=== PATIENT | male | born 1960 | race Two or more races ===

== ENCOUNTER 2024-05-29 07:18 | Emergency (ER) | payer MEDICAID ==
[~2024-05-29] VITALS: Ht 170.2 cm; Wt 82.0 kg
[2024-05-29 07:23] VITALS: TEMP 98.3
[2024-05-29] MEDS: IBUPROFEN 200 MG TABLET PO ONE (07:54)
[2024-05-29] MEDS: ACETAMINOPHEN 500 MG TABLET PO ONE (07:54)
[2024-05-29] MEDS ORDERED: ACET-66 PO (08:20)
[2024-05-29] MEDS ORDERED: IBUP-1554 PO (08:20)
[2024-05-29 08:58] VITALS: BP 139/74; PULSE 90; RESP 18; O2SAT 99
== END 2024-05-29 08:59 | disposition home or self-care (01) ==
LOC: EMS 07:22
DX: S20.211A Contusion of right front wall of thorax, initial encounter (principal); M79.601 Pain in right arm; W22.8XXA Striking against or struck by other objects, initial encounter; Y93.89 Activity, other specified; Y92.89 Other specified places as the place of occurrence of the external cause; Y99.8 Other external cause status
CPT/HCPCS: 71101; 99283